=== PATIENT | male | born 1970 | race Two or more races ===

== ENCOUNTER 2019-10-26 14:16 | Emergency (ER) | payer MEDICAID ==
[2019-10-26] MEDS ORDERED: TETanus/Pertussis (Acell)/Diphther VAC/PF (Tdap-Adult) 0.5ml syringe IMVAC ONE (15:10)
[2019-10-26 16:52] VITALS: BP 177/109
[2019-10-26] MEDS ORDERED: LIDOcaine 1% W/epiNEPHrine 1:100,000 20ml vial ONE (17:00)
== END 2019-10-26 16:54 | disposition home or self-care (01) ==
LOC: ER 14:16
DX: S81.012A Laceration without foreign body, left knee, initial encounter (principal); W29.3XXA Contact with powered garden and outdoor hand tools and machinery, initial encounter; Y93.89 Activity, other specified; Y92.89 Other specified places as the place of occurrence of the external cause; Y99.9 Unspecified external cause status
CPT/HCPCS: 12004; 73564; 90471; 90715; 99283